=== PATIENT | female | born 1970 | race Caucasian/White ===

== ENCOUNTER 2016-11-02 10:33 | Emergency (ER) | payer OTHER ==
[~2016-11-02] VITALS: Ht 172.7 cm; Wt 91.9 kg
[2016-11-02 10:37] VITALS: TEMP 37; Ht 172.7 cm; Wt 91.9 kg
[2016-11-02 11:01] VITALS: O2SAT 99
[2016-11-02] MEDS ORDERED: SODIUM CHLORIDE 0.9% 1000ML 250 ML IV STA (11:14)
[2016-11-02] MEDS ORDERED: ONDANSETRON INJ 2 MG/ML 2 ML VIAL IV STA (11:14)
[2016-11-02] MEDS ORDERED: KETOROLAC TROMETHAMINE 30 MG/ML VIAL IV STA (11:14)
[2016-11-02] MEDS ORDERED: MoRPHine SULFATE 10 MG/ML CARP/VIAL IV PRN (11:15)
[2016-11-02 11:26] LABS: HEMATOCRIT 41.1 % (37-47); MEAN CELL VOLUME 89.5 fL (80-100); MEAN CORPUSCULAR HEMOGLOBIN 31.6 pg (25-34); MEAN CORPUSCULAR HGB CONC 35.3 g/dl (32-36); MEAN PLATELET VOLUME 9.9 fL (7.4-10.4); PLATELET COUNT 253 K/uL (130-400); RED BLOOD COUNT 4.59 M/uL (4.2-5.4); WHITE BLOOD COUNT 14.39 K/uL (4.8-10.8)
[2016-11-02 11:35] LABS: CALCIUM 9.3 mg/dl (8.5-10.1); CREATININE 0.74 mg/dl (0.60-1.20)
[2016-11-02 11:38] LABS: ALB/GLOB RATIO 0.9 (0.9-2)
--- NOTE | 2016-11-02 11:41 | DIAGNOSTIC IMAGING REPORT ---
CHEST ONE VIEW PORTABLE CLINICAL HISTORY: FLANK PAIN/HEMATURIA pain COMPARISON STUDY: 10/17/2013 FINDINGS: The bones soft tissues and hemidiaphragms are normal. The cardiomediastinal silhouette is normal. The lungs are clear. The pulmonary vasculature is normal. IMPRESSION: Negative chest. Electronically signed by: Dave Moore M.D. 11/02/2016 11:40 AM Dictated Date/Time: 11/02/2016 11:39 AM
[2016-11-02 11:46] LABS: BASO % 0.2 %; BASO ABS # 0.03 K/uL (0-0.2); COMPLETE YES; EOS % 1.5 %; IG% 0.5 %; LYMPH % 27.7 %; LYMPH ABS # 3.98 K/uL (1.2-3.4); MONO % 6.2 %; NEUT % 63.9 %
--- NOTE | 2016-11-02 11:51 | EMERGENCY ROOM VISIT NOTE ---
History Report prepared by Jax: Joselin Benites Under the Supervision of: Dr. Ramiro Martinez M.D. First contact with patient: 10:43 Chief Complaint: RESPIRATORY PROBLEMS Stated Complaint: HURTS TO BREATHE, MOVE BY LUNGS Nursing Triage Summary: Patient c/o mid back pain bilaterally yesterday when she woke up, believed pain was from sleeping on her cough. Today pain was worse and wrapped around to her bilateral chest. Pt states she went to Chiroproctor at 1000 this morning and pain worsened after. Pain increases with movement and deep breath. History of Present Illness The patient is a 46 year old female who presents to the Emergency Room with complaints of worsening right back pain since yesterday morning. She states that the pain worsened this morning and spread to the front of her body, prompting her to come to the ED. She has never experienced this pain before. She describes the pain as sharp jolts. She reports that she initially believed that the pain was due to sleeping in an uncomfortable position. She took Excedrin for her pain, but experienced no significant relief. She went to the chiropractor yesterday and states the pain has been worse since seeing the chiropractor. She reports that her pain worsens with movement and deep breaths. She is experiencing some increased urinary frequency. She denies any fever, chills, headaches, diaphoresis, vision changes, abdominal pain, nausea, vomiting , rash and dysuria. She denies any recent falls or travel in the past month. She denies any history of clots in the leg or lung, she denies a history of kidney stones. Source of History: patient Onset: yesterday morning Position: back (right) Quality: sharp (sharp jolts) Timing: worsening Modifying Factors (Worsening): breathing (deep breaths), movement Associated Symptoms: No abdominal pain, No chills, No diaphoresis, No fevers , No headache, No nausea, No rash, No vomiting Note: Pt reports increased urinary frequency. Pt denies vision changes and dysuria. Review of Systems See HPI for pertinent positives & negatives. A total of 10 systems reviewed and were otherwise negative. Past Medical & Surgical Medical Problems: (1) Cholecystectomy (2) Cholelith W Cholecys Nec (3) Tobacco Use Disorder Family History Myocardial infarction at age less than 60 Social History Smoking Status: Current Every Day Smoker (1 ppd for past 3 years) Alcohol Use: occasionally Marital Status: Housing Status: lives with family Occupation Status: employed Current/Historical Medications Scheduled Ibuprofen (Motrin), 600 MG PO TID Scheduled PRN Oxycodone Ir (Roxicodone Ir), 1-2 TAB PO Q4H PRN for Pain Allergies Coded Allergies: No Known Allergies (Verified , 05/14/15) Physical Exam Vital Signs Date Time Temp Pulse Resp B/P Pulse Ox O2 Delivery O2 Flow Rate FiO2 11/02/16 13:03 69 18 96/73 95 11/02/16 13:01 69 18 96/73 95 Room Air 11/02/16 12:22 74 16 97/63 92 Room Air 11/02/16 11:12 91 22 136/106 98 Room Air 11/02/16 11:04 99 Room Air 11/02/16 11:01 99 11/02/16 10:59 86 11/02/16 10:56 99 Room Air 11/02/16 10:37 37.0 100 20 121/91 98 Room Air Physical Exam GENERAL: Patient is in no acute distress. HEENT: No acute trauma, normocephalic atraumatic, mucous membranes moist, no nasal congestion, no scleral icterus. NECK: No stridor, no adenopathy, no meningismus, trachea is midline. CHEST: Right chest pain worsens with movement and breathing, but is not reproducible with palpation. No rash noted. LUNGS: Equal breath sounds bilaterally, but there is splinting with deep breaths. No wheezes, no rhonchi. HEART: Without murmurs gallops or rubs, regular rate and rhythm. ABDOMEN: Soft, nontender, bowel sounds positive, no hernias, no peritonitis. EXTREMITIES: No cyanosis or edema, full range of motion of all the joints without pain or difficulty, no signs for acute trauma. NEUROLOGIC: Oriented x 3, no acute motor or sensory deficits, no focal weakness. SKIN: No rash, no jaundice, no diaphoresis. Medical Decision & Procedures ER Provider Diagnostic Interpretation: X-ray results as stated below per interpretation by me and the radiologist: CHEST ONE VIEW PORTABLE CLINICAL HISTORY: FLANK PAIN/HEMATURIA pain COMPARISON STUDY: 10/17/2013 FINDINGS: The bones soft tissues and hemidiaphragms are normal. The cardiomediastinal silhouette is normal. The lungs are clear. The pulmonary vasculature is normal. IMPRESSION: Negative chest. Electronically signed by: Dave Moore M.D. 11/02/2016 11:40 AM Dictated Date/Time: 11/02/2016 11:39 AM Laboratory Results 11/02/16 10:53 Red Blood Count 4.59, Mean Corpuscular Volume 89.5, Mean Corpuscular Hemoglobin 31.6, Mean Corpuscular Hemoglobin Concent 35.3, Mean Platelet Volume 9.9, Neutrophils (%) (Auto) 63.9, Lymphocytes (%) (Auto) 27.7, Monocytes (%) (Auto) 6.2, Eosinophils (%) (Auto) 1.5, Basophils (%) (Auto) 0.2, Neutrophils # (Auto) 9.21, Lymphocytes # (Auto) 3.98, Monocytes # (Auto) 0.89, Eosinophils # (Auto) 0.21, Basophils # (Auto) 0.03 11/02/16 10:53 Test 11/02/16 10:53 11/02/16 11:05 11/02/16 11:25 White Blood Count 14.39 K/uL (4.8-10.8) Red Blood Count 4.59 M/uL (4.2-5.4) Hemoglobin 14.5 g/dL (12.0-16.0) Hematocrit 41.1 % (37-47) Mean Corpuscular Volume 89.5 fL (80-100) Mean Corpuscular Hemoglobin 31.6 pg (25-34) Mean Corpuscular Hemoglobin Concent 35.3 g/dl (32-36) Platelet Count 253 K/uL (130-400) Mean Platelet Volume 9.9 fL (7.4-10.4) Neutrophils (%) (Auto) 63.9 % Lymphocytes (%) (Auto) 27.7 % Monocytes (%) (Auto) 6.2 % Eosinophils (%) (Auto) 1.5 % Basophils (%) (Auto) 0.2 % Neutrophils # (Auto) 9.21 K/uL (1.4-6.5) Lymphocytes # (Auto) 3.98 K/uL (1.2-3.4) Monocytes # (Auto) 0.89 K/uL (0.11-0.59) Eosinophils # (Auto) 0.21 K/uL (0-0.5) Basophils # (Auto) 0.03 K/uL (0-0.2) RDW Standard Deviation 45.0 fL (36.4-46.3) RDW Coefficient of Variation 13.7 % (11.5-14.5) Immature Granulocyte % (Auto) 0.5 % Immature Granulocyte # (Auto) 0.07 K/uL (0.00-0.02) Anion Gap 10.0 mmol/L (3-11) Est Creatinine Clear Calc Drug Dose 113.8 ml/min Estimated GFR () 113.4 Estimated GFR (Non- 97.8 BUN/Creatinine Ratio 8.0 (10-20) Calcium Level 9.3 mg/dl (8.5-10.1) Total Bilirubin 0.3 mg/dl (0.2-1) Aspartate Amino Transf (AST/SGOT) 12 U/L (15-37) Alanine Aminotransferase (ALT/SGPT) 20 U/L (12-78) Alkaline Phosphatase 95 U/L (45-117) Total Protein 7.6 gm/dl (6.4-8.2) Albumin 3.6 gm/dl (3.4-5.0) Globulin 4.0 gm/dl (2.5-4.0) Albumin/Globulin Ratio 0.9 (0.9-2) Lipase 140 U/L (73-393) Urine Color YELLOW Urine Appearance CLEAR (CLEAR) Urine pH 7.0 (4.5-7.5) Urine Specific [place] 1.002 (1.000-1.030) Urine Protein NEG (NEG) Urine Glucose (UA) NEG (NEG) Urine Ketones NEG (NEG) Urine Occult Blood NEG (NEG) Urine Nitrite NEG (NEG) Urine Bilirubin NEG (NEG) Urine Urobilinogen NEG (NEG) Urine Leukocyte Esterase NEG (NEG) Urine Test NEG (NEG) Bedside D-Dimer 444 ng/mlFEU (0-450) Laboratory results reviewed by me. Urine dip shows trace leukocytes only. test is negative. Medications Administered Medications (Trade) Dose Ordered Sig/Parveen Route Start Time Stop Time Status Last Admin Dose Admin Sodium Chloride (Nss 1000ml) 250 ml @ 999 mls/hr Q16M STAT IV 11/02/16 11:14 11/02/16 11:29 DC 11/02/16 11:14 999 MLS/HR Ondansetron HCl (Zofran Inj) 4 mg NOW STAT IV 11/02/16 11:14 11/02/16 11:17 DC 11/02/16 11:47 4 MG Ketorolac Tromethamine (Toradol Inj) 30 mg NOW STAT IV 11/02/16 11:14 11/02/16 11:17 DC 11/02/16 11:47 30 MG ECG Indication: chest pain Rate (beats per minute): 70 Rhythm: normal sinus Findings: no acute ischemic change, no ectopy ED Course 1112: The patient was evaluated in room C3. A complete history and physical exam was performed. 1114: Toradol Inj 30 mg IV, Zofran Inj 4 mg IV, NSS 250 ml @ 999 mls/hr IV. 1115: Morphine Sulfate 6 mg IV. 1234: I reevaluated the patient. I discussed the results and treatment plan with her. She verbalized understanding and agreement. She will be discharged home. Medical Decision Differential diagnoses: PE, musculoskeletal pain, pneumothorax, pneumonia, shingles, pyelonephritis. There is a mild leukocytosis which could be consistent with infection or pain. Looking back at previous testing, her white count has been elevated like this in the past. No worrisome anemia. No significant electrolyte abnormality, kidney failure or hepatitis. There is no pancreatitis. EKG shows a normal sinus rhythm, no dysrhythmia or acute ischemia. Urinalysis does not show evidence for infection. testing is negative. Chest x-ray shows no pneumonia, pneumothorax or free air. The patient presents with right-sided chest pain which is worse with movement and breathing. The pain is very likely musculoskeletal. I do think she is stable for discharge. The patient was given IV saline, IV Toradol, IV morphine and IV Zofran, she is much more comfortable. She is being discharged on Motrin and oxycodone. She will return if worsening or developing fever. She will watch closely for a shingles rash. [place] Drug Monitoring Program Search Results: patient reviewed within database, no issues identified Impression Primary Impression: Right-sided chest pain Additional Impression: Shortness of breath Scribe Attestation The scribe's documentation has been prepared under my direction and personally reviewed by me in its entirety. I confirm that the note above accurately reflects all work, treatment, procedures, and medical decision making performed by me. Departure Information Dispostion Home / Self-Care Prescriptions Oxycodone Ir (Roxicodone Ir) 5 Mg Tab 1-2 TAB PO Q4H Y for Pain, #12 TAB Prov: Ramiro Martinez M.D. 11/02/16 Ibuprofen (Motrin) 600 Mg Tab 600 MG PO TID, #15 TAB With Food Prov: Ramiro Martinez M.D. 11/02/16 Referrals No Doctor, Assigned (PCP) Forms HOME CARE DOCUMENTATION FORM, IMPORTANT VISIT INFORMATION, WORK / SCHOOL INSTRUCTIONS Patient Instructions My [facility] Additional Instructions heat, massage, stretching, avoid lifting motrin 600 mg 3x per day for 5 days oxy ir 1-2 tab every 4 hours for severe pain return for worsening symptoms, fever, uncontrolled pain see stephane hart this week watch for a rash as early shingles can present like this sometimes Problem Qualifiers
[2016-11-02 11:55] LABS: URINE APPEARANCE CLEAR (CLEAR); URINE BILIRUBIN NEG (NEG); URINE COLOR YELLOW; URINE NITRITE NEG (NEG); URINE SPECIFIC GRAVITY 1.002 (1.000-1.030); UROBILINOGEN NEG (NEG); ZZUR CULT IF INDIC CLEAN CATCH NO
[2016-11-02 12:06] LABS: MANUAL MICROSCOPIC REQUIRED? NO; REVIEW REQ? NO
[2016-11-02] MEDS ORDERED: IBUP600T44 PO (12:51)
[2016-11-02] MEDS ORDERED: OXYC1TAB3 PO (12:51)
[2016-11-02 13:03] VITALS: BP 96/73; PULSE 69; O2SAT 95
[2017-05-07] MEDS ORDERED: LORA-741 PO (08:34)
== END 2016-11-02 13:05 | disposition home or self-care (01) ==
LOC: C.EDB 10:37 → C.EDC 13:05
DX: R07.9 Chest pain, unspecified (principal); R06.02 Shortness of breath; F17.210 Nicotine dependence, cigarettes, uncomplicated

== ENCOUNTER → 2017-01-17 | Outpatient (CLI) | payer OTHER ==
[~2017-01-17] MED LIST: IBUP600T44 PO; LORA-741 PO; OXYC1TAB3 PO
[2017-01-17 12:01] LABS: HEMATOCRIT 40.3 % (37-47); MEAN CELL VOLUME 92.2 fL (80-100); MEAN CORPUSCULAR HEMOGLOBIN 30.7 pg (25-34); MEAN CORPUSCULAR HGB CONC 33.3 g/dl (32-36); MEAN PLATELET VOLUME 10.2 fL (7.4-10.4); PLATELET COUNT 259 K/uL (130-400); RED BLOOD COUNT 4.37 M/uL (4.2-5.4); WHITE BLOOD COUNT 11.35 K/uL (4.8-10.8)
[2017-01-17 12:12] LABS: CALCIUM 8.6 mg/dl (8.5-10.1)
[2017-01-17 12:14] LABS: ALT/SGPT 17 U/L (12-78); BLOOD UREA NITROGEN 6 mg/dl (7-18); BUN/CREATININE RATIO 8.3 (10-20); CARBON DIOXIDE 24 mmol/L (21-32); CHLORIDE 108 mmol/L (98-107); CHOLESTEROL 158 mg/dl (0-200); CREATININE 0.77 mg/dl (0.60-1.20); GLUCOSE 90 mg/dl (70-99); SODIUM 140 mmol/L (136-145); TRIGLYCERIDES 210 mg/dl (0-150); URIC ACID 5.2 mg/dl (2.6-7.2); VERY LOW DENSITY LIPOPROT CALC 42 mg/dl
[2017-01-17 12:18] LABS: PROLACTIN 9.96 ng/mL
[2017-01-17 12:24] LABS: ALB/GLOB RATIO 0.9 (0.9-2); ALKALINE PHOSPHATASE 84 U/L (45-117); AST/SGOT 10 U/L (15-37); CHOLESTEROL/HDL RATIO 5.1; HDL CHOLESTEROL 31 mg/dl; LDL CHOLESTEROL CALCULATED 85 mg/dl
== END | disposition home or self-care (01) ==
LOC: C.LAB 10:10
PROVIDERS: ATTEND Physician Assistant
DX: R73.01 Impaired fasting glucose (principal); R53.83 Other fatigue; N94.89 Other specified conditions associated with female genital organs and menstrual cycle

== ENCOUNTER → 2017-01-23 | Outpatient (CLI) | payer OTHER ==
--- NOTE | 2017-01-23 09:47 | DIAGNOSTIC IMAGING REPORT ---
PELVIC ULTRASOUND, TRANSABDOMINAL AND TRANSVAGINAL HISTORY: Pelvic pain. N94.89, OTHER SPECIFIED CONDITIONS W/FEMALE ORGANS COMPARISON: None. FINDINGS: Uterus: 10.6 x 5.7 x 7.6 cm. No uterine masses. A few small hypodense. Endometrial stripe: 1 cm in thickness. Right ovary: Normal in size and demonstrates normal color flow. Left ovary: Normal in size and demonstrates normal color flow. A 2.3 cm simple cyst. There is also a 2.5 x 2.2 x 2.0 cm slightly heterogeneous lesion within the left ovary. This is not demonstrate color flow and favors a complex/hemorrhagic cyst. Miscellaneous:No pelvic free fluid. IMPRESSION: 1. Normal uterus and right ovary. 2. There is a 2.5 x 2.2 x 2.0 cm slightly heterogeneous lesion within the left ovary. This is not demonstrate color flow and favors a complex/hemorrhagic cyst. Follow-up pelvic ultrasound in 6-8 weeks is recommended to ensure resolution. Electronically signed by: Agustin Bernard M.D. 01/23/2017 9:46 AM Dictated Date/Time: 01/23/2017 9:43 AM
== END | disposition home or self-care (01) ==
LOC: C.ULTR 08:52
PROVIDERS: ATTEND Physician Assistant
DX: N94.89 Other specified conditions associated with female genital organs and menstrual cycle (principal); N83.9 Noninflammatory disorder of ovary, fallopian tube and broad ligament, unspecified

== ENCOUNTER → 2017-02-05 | Outpatient (CLI) | payer OTHER | END | disposition home or self-care (01) | LOC: C.PATHSPEC 16:00 | PROVIDERS: ATTEND Obstetrics & Gynecology | DX: N91.5 Oligomenorrhea, unspecified (principal) ==

== ENCOUNTER → 2017-02-19 | Outpatient (CLI) | payer OTHER ==
[~2017-02-19] MED LIST changes: -LORA-741 PO
--- NOTE | 2017-02-20 13:06 | MAMMOGRAPHY REPORT ---
BILATERAL DIGITAL SCREENING MAMMOGRAM TOMOSYNTHESIS WITH CAD: 02/19/2017 CLINICAL HISTORY: Routine screening. Baseline exam. TECHNIQUE: Breast tomosynthesis in addition to standard 2D mammography was performed. Current study was also evaluated with a Computer Aided Detection (CAD) system. COMPARISON: No prior exams were available for comparison. BREAST COMPOSITION: There are scattered areas of fibroglandular density in both breasts. FINDINGS: No suspicious mass, architectural distortion or cluster of microcalcifications is seen. IMPRESSION: ACR BI-RADS CATEGORY 1: NEGATIVE There is no mammographic evidence of malignancy. A 1 year screening mammogram is recommended. The pa tient will receive written notification of the results. Approximately 10% of breast cancers are not detected with mammography. A negative mammographic report should not delay biopsy if a clinically suggestive mass is present. Vianey newman/meaghan:02/19/2017 16:33:25 Licensed Surveyor: Hubert VILA(Maribell)([place]), [facility] letter sent: Normal 1/2 BI-RADS Code: ACR BI-RADS Category 1: Negative
== END | disposition home or self-care (01) ==
LOC: C.MAMM 14:12
PROVIDERS: ATTEND Physician Assistant
DX: Z12.31 Encounter for screening mammogram for malignant neoplasm of breast (principal)

== ENCOUNTER → 2017-04-04 | Outpatient (CLI) | payer OTHER ==
[~2017-04-04] MED LIST changes: +LORA-741 PO
== END | disposition home or self-care (01) ==
LOC: C.PATHSPEC 15:51
PROVIDERS: ATTEND Obstetrics & Gynecology
DX: D06.9 Carcinoma in situ of cervix, unspecified (principal)

== ENCOUNTER → 2017-07-22 | Outpatient (CLI) | payer OTHER ==
[~2017-07-22] MED LIST changes: -IBUP600T44 PO; -OXYC1TAB3 PO
--- NOTE | 2017-07-22 11:12 | DIAGNOSTIC IMAGING REPORT ---
ULTRASOUND OF THE PELVIS CLINICAL HISTORY: Pelvic pain. COMPARISON STUDY: Pelvic ultrasound dated 01/23/2017. TECHNIQUE: Real-time, grayscale, and color flow sonography of the pelvis is performed both transabdominally and endovaginally. Images are reviewed in the transverse and longitudinal planes. FINDINGS: Uterus: The uterus is normal in size and echotexture, measuring 10.5 x 5.3 x 5.7 cm. Nabothian cysts are incidentally noted in the cervix. Endometrium: The endometrium is normal in appearance, and appears thickened measuring up to 1.5 cm. Ovaries: The ovaries are normal in size and morphology. The right ovary measures 3.7 x 2.2 x 2.5 cm and the left ovary measures 4.7 x 2.9 x 3.1 cm. A septated dominant follicle in the right ovary measures up to 3.1 cm. A septated cyst in the left ovary measures up to 4.2 cm. Normal Doppler waveforms are shown within both ovaries. Pelvis: There is no free fluid in the cul-de-sac. No concerning adnexal lesion is seen. IMPRESSION: 1. The endometrial stripe is mildly thickened measure up to 1.5 cm. This is nonspecific and may be related to the phase of the patient's cycle. 2. There is a 4.2 cm septated cyst identified in the left ovary. There is no sonographic evidence of ovarian torsion at the time of examination. 3. A dominant follicle is also seen in the right ovary. Electronically signed by: Ramiro Mcginnis M.D. 07/22/2017 11:11 AM Dictated Date/Time: 07/22/2017 11:05 AM
== END | disposition home or self-care (01) ==
LOC: C.ULTR 09:47
PROVIDERS: ATTEND Obstetrics & Gynecology Gynecologic Oncology
DX: R10.2 Pelvic and perineal pain (principal); N83.202 Unspecified ovarian cyst, left side

== ENCOUNTER → 2017-08-05 | Outpatient (CLI) | payer OTHER ==
[2017-08-05 15:35] LABS: MEAN CELL VOLUME 90.7 fL (80-100); MEAN CORPUSCULAR HEMOGLOBIN 31.3 pg (25-34); MEAN CORPUSCULAR HGB CONC 34.5 g/dl (32-36); MEAN PLATELET VOLUME 9.7 fL (7.4-10.4); PLATELET COUNT 248 K/uL (130-400); RED BLOOD COUNT 4.19 M/uL (4.2-5.4); WHITE BLOOD COUNT 12.66 K/uL (4.8-10.8)
--- NOTE | 2017-08-05 15:40 | DIAGNOSTIC IMAGING REPORT ---
CHEST 2 VIEWS ROUTINE CLINICAL HISTORY: Pneumonia; cervical DYSPLASIA N87.9,Z01.818 COMPARISON STUDY: 11/02/2016 FINDINGS: The cardiac and mediastinal contours are normal. There is no evidence of focal pulmonary consolidation. There is no evidence of failure. No pleural effusions are visualized.[ IMPRESSION: No active disease in the chest. Electronically signed by: Geoff Ruth M.D. 08/05/2017 3:39 PM Dictated Date/Time: 08/05/2017 3:39 PM
[2017-08-05 15:58] LABS: ALT/SGPT 17 U/L (12-78); BLOOD UREA NITROGEN 8 mg/dl (7-18); BUN/CREATININE RATIO 10.4 (10-20); CALCIUM 8.8 mg/dl (8.5-10.1); CARBON DIOXIDE 26 mmol/L (21-32); CHLORIDE 104 mmol/L (98-107); CREATININE 0.76 mg/dl (0.60-1.20); GLUCOSE 122 mg/dl (70-99); POTASSIUM 3.7 mmol/L (3.5-5.1); SODIUM 138 mmol/L (136-145)
[2017-08-05 16:00] LABS: ALB/GLOB RATIO 0.9 (0.9-2); ALKALINE PHOSPHATASE 94 U/L (45-117); AST/SGOT 10 U/L (15-37)
== END | disposition home or self-care (01) ==
LOC: C.CPL 14:43
PROVIDERS: ATTEND Physician Assistant
DX: Z01.818 Encounter for other preprocedural examination (principal); N87.9 Dysplasia of cervix uteri, unspecified

== ENCOUNTER → 2018-04-10 | Outpatient (CLI) | payer OTHER ==
[~2018-04-10] MED LIST changes: +ASPI-391 PO; +GADAVIST IV PRN
--- NOTE | 2018-04-10 10:45 | DIAGNOSTIC IMAGING REPORT ---
BRAIN COMBO CLINICAL HISTORY: R27.0 [id number] Neurologic gait [id number] mental status change COMPARISON STUDY: 05/11/2013 TECHNIQUE: Utilizing a 1.5 Rere magnet and dedicated coil, multiplanar, multiecho imaging of the brain was performed pre and postcontrast administration. IV administration of 8 mL of Gadavist contrast was uneventful. FINDINGS: Small focus increased signal left superior parietal lobe region. This is unremarkable in a patient with a history of chronic headache. No additional foci of increased signal are identified. Postcontrast images are considered negative for an enhancing lesion. Sella and parasellar region are unremarkable. IMPRESSION: Negative study. No change from the prior study. The above report was generated using voice recognition software. It may contain grammatical, syntax or spelling errors. Electronically signed by: Dave Moore M.D. 04/10/2018 10:43 AM Dictated Date/Time: 04/10/2018 10:38 AM
== END | disposition home or self-care (01) ==
LOC: C.MRIBC 09:22
PROVIDERS: ATTEND Psychiatry & Neurology Neurology
DX: R26.9 Unspecified abnormalities of gait and mobility (principal); R27.0 Ataxia, unspecified; R51 Headache